=== PATIENT | female | born 2000 | race Caucasian/White ===

== ENCOUNTER 2019-05-15 22:27 | Emergency (ER) | payer BC, SELFPAY ==
[2019-05-15 22:29] VITALS: BP 131/66; PULSE 56; RESP 16; TEMP 36.7; O2SAT 97; BMI 22.5
--- NOTE | 2019-05-15 23:20 | ED.DCSUM_ITS ---
- ER Visit Summary Date of Service: 05/15/19 Chief Complaint: Left great toe ingrown nail History of Present Illness: The patient is a 19 F. Past medical or surgical history. Patient is a [employer] student. She removed some skin that was ingrown of her right great toe and now it is infected and swollen and the nail was ingrown no prior history. No trauma. No fever. Physical Examination: Well-appearing young female. Vital signs are stable and afebrile. HEENT exam unremarkable. Lungs clear to auscultation. Heart regular rhythm no murmur. Patient is moving all 4 extremities. Neurovascularly intact.. Her right great toe at the nail on the lateral side is ingrown with swelling and redness to the skin. Foot is neurovascularly intact. Normal DP pulse. No bony deformity. Other toes are unremarkable. Test Results: None Emergency Department Course and Treatment: Right great ingrown toenail infected. Procedure note: Toe was cleaned with iodine. Digital block was performed using Xylocaine. Once proper anesthetic was obtained. I undermined the great toe nail, excised and removed the lateral quarter of the nail. Patient was instructed on wound care. Treatment Plan: Tylenol Motrin for pain. Warm soaks. Keflex 4 times daily for 5 days. Follow-up if not improving return if worse. Disposition: Discharge Impression: Acute right ingrown toenail infected Digital block and partial nail resection by ER This note was generated with [employer] dictation software. It may contain incorrect words, spelling, and punctuation that were not noted in review of the chart prior to signing ED Disposition - Plan for ED Patient: Referrals: Care Physician,No Primary [Primary Care Provider] -
--- NOTE | 2019-05-15 23:23 | ED.DEP ---
ED Disposition - Plan for ED Patient: Disposition: Home or Assisted Living Instructions: INGROWN TOENAIL, Excised Prescriptions: Cephalexin [Keflex] 500 mg PO Q6 #20 cap Prescription Printed Referrals: Chris Stoll DPM [STAFF PHYSICIAN] - 1 Week if not improving Additional Instructions: Warm soaks. Tylenol and Motrin for pain. Finished antibiotic 1 pill 4 times per day for 5 days. Follow-up with not improving return if worse.
[2019-05-15] MEDS: Cephalexin 250 MG Capsule 500 MG PO (23:42)
[2019-05-15 23:47] VITALS: BP 131/58; PULSE 62; RESP 18; O2SAT 97
== END 2019-05-15 23:48 | disposition home or self-care (01) ==
PROVIDERS: Emergency Provider Emergency Medicine
DX: L60.0 Ingrowing nail (principal)
CPT/HCPCS: 11730; 99284

== ENCOUNTER 2019-06-22 17:00 | Emergency (ER) | payer BC, SELFPAY ==
[2019-06-22 17:02] VITALS: BP 110/67; PULSE 96; RESP 16; TEMP 36.8; O2SAT 97; BMI 22.4
[2019-06-22 17:05] VITALS: PULSE 96; TEMP 36.8
--- NOTE | 2019-06-22 17:25 | RAD_ITS ---
STUDY: X-RAY CHEST REASON FOR EXAM: Female, 19 years old. Cough TECHNIQUE: Single AP portable view of the chest. COMPARISON: None. FINDINGS: The lungs are clear and expanded. There is no demonstrated pleural abnormality. Normal size heart. Normal mediastinum and phuong. Normal visualized pulmonary arteries. Normal visualized aortic arch and descending thoracic aorta. Normal visualized thoracic spine. Normal visualized ribs, clavicles, and shoulders. There is no demonstrated abnormality of the visualized soft tissue structures of the upper abdomen. RAD/Chest 1 View (Portable) IMPRESSION: Normal x-ray examination of the chest. Electronically Signed: Ashutosh Aden MD at 17:42 EST , Service support ,
--- NOTE | 2019-06-22 17:54 | ED.DCSUM_ITS ---
- ER Visit Summary Date of Service: 06/22/19 Chief Complaint: Cough, URI symptoms History of Present Illness: The patient is a 19 F presenting with cough and URI symptoms for the past 2 weeks. Patient states that she had cough, congestion for about 9 days and started to feel better. Then the symptoms returned. She has multiple sick contacts. She states one of her friends has walking pneumonia. She denies fever. She has a sore throat but no difficulty swallowing. Denies other complaints. Physical Examination: Vitals are stable. Patient is afebrile. Alert no acute distress. HEENT exam is unremarkable. Pharynx is normal. Neck is supple. No meningismus Lungs are clear and equal bilaterally. Heart is regular rate and rhythm. Abdomen is soft nontender nondistended. Extremities are unremarkable. Skin is warm and dry. No rash No focal neurologic deficit. Remainder of exam is unremarkable. Emergency Department Course and Treatment: Chest x-ray shows no acute process. Rapid strep is negative. She is given a prescription for Tessalon Perles. Advised to follow-up with primary care physician. Advised return to ED if worsening complaints. Disposition: Discharge home Impression: URI This note was generated with [employer] dictation software. It may contain incorrect words, spelling, and punctuation that were not noted in review of the chart prior to signing ED Disposition - Plan for ED Patient: Referrals: Care Physician,No Primary [Primary Care Provider] -
--- NOTE | 2019-06-22 17:58 | ED.DEP ---
ED Disposition - Plan for ED Patient: Instructions: VIRAL SYNDROME (Adult) Prescriptions: Benzonatate [Tessalon Perle] 200 mg PO TID PRN PRN #20 capsule PRN Reason: Cough Referrals: Care Physician,No Primary [Primary Care Provider] -
== END 2019-06-22 18:05 | disposition home or self-care (01) ==
LOC: ED 17:41
PROVIDERS: Emergency Provider Emergency Medicine
DX: J06.9 Acute upper respiratory infection, unspecified (principal)
CPT/HCPCS: 71045; 87880; 99282